=== PATIENT | female | born 1950 | race Caucasian/White ===

== ENCOUNTER → 2016-09-17 | Outpatient (CLI) | payer OTHER ==
--- NOTE | 2016-09-17 18:28 | DX ---
DEXA Bone Mineral Densitometry Clinical Indications: Postmenopausal, dizziness, family history of osteoporosis, apparent with hip f racture, left hip replacement, osteoporosis medication Comparison: September 13, 2014 (low bone density) Technique: Bone Mineral Densitometry (BMD) by Dual Energy X-Ray Absorptiometry (DEXA) was performed utilizing the [employer] scanner. The lumbar spine was evaluated in the AP projection. The right hip and left forearm were evaluated in the AP projection. Vertebral fracture assessment was also per formed. AP Lumbar Spine: The L1 and L2,vertebral bodies were evaluated. L3 and L4 are excluded due to dege nerative sclerosis. BMD: 0.840 gm/cm2 T-score: -2.8 SD Z-score: -1.2 SD L1 and L2 have significantly decreased by 5.5%. AP Right Hip: Neck BMD: 0.705 gm/cm2 T-score: -2.4 SD Z-score: -0.9 SD No significant change in total BMD AP Left Forearm, 08/27: BMD: 0.721 gm/cm2 T-score: -1.8 SD Z-score: 0.2 SD No significant change. There is a downward trend since 2006. Vertebral Fracture Assessment: No significant fracture deformity. Degenerative spurring in the low l umbar spine likely increases L3 and L4 BMD. Conclusion: Considering the lowest measured site, the patient is osteoporotic and at increased risk for fracture. The ten year FRAX risk for any major osteoporotic fracture is 22.9% and for a hip fracture is 4.0%. A ccording to the recommendation of the [employer], this patient is a good candid ate for continuing pharmacologic intervention, as clinically directed. Any bone loss in this patient is probably related to aging or estrogen deficiency. To prevent osteoporosis and to promote the patient's bone density, the following recommendations shou ld be considered: 1. Pursue a regular regimen of weightbearing and muscle strengthening exercises in order to reduce t he risk of falls and fractures (as tolerated by the patient's general medical condition). 2. Ensure that daily dietary calcium uptake is maximized. 3. Consider checking the serum vitamin D level. Ensure that intake of vitamin D is 800 IU per day 4. Consider follow-up DEXA scan in two years to assess the rate of bone loss in this patient.
== END ==
LOC: FIMAGING 08:53
PROVIDERS: ATTEND Family Medicine
DX: M81.0 Age-related osteoporosis without current pathological fracture (principal); R42 Dizziness and giddiness; Z96.642 Presence of left artificial hip joint; Z82.62 Family history of osteoporosis

== ENCOUNTER → 2018-01-01 | Outpatient (CLI) | payer OTHER | LOC: FIMAGING 09:55 | PROVIDERS: ATTEND Family Medicine | DX: M17.12 Unilateral primary osteoarthritis, left knee (principal) ==

== ENCOUNTER → 2018-09-15 | Outpatient (CLI) | payer OTHER | LOC: FIMAGING 09:44 | PROVIDERS: ATTEND Internal Medicine Endocrinology, Diabetes & Metabolism | DX: Z13.820 Encounter for screening for osteoporosis (principal); M85.80 Other specified disorders of bone density and structure, unspecified site; Z78.0 Asymptomatic menopausal state; Z85.3 Personal history of malignant neoplasm of breast; Z96.642 Presence of left artificial hip joint ==

== ENCOUNTER → 2018-09-29 | Outpatient (CLI) | payer OTHER | LOC: FIMAGING 19:17 | PROVIDERS: ATTEND Family Medicine | DX: M23.322 Other meniscus derangements, posterior horn of medial meniscus, left knee (principal); M24.10 Other articular cartilage disorders, unspecified site; M25.462 Effusion, left knee ==

== ENCOUNTER → 2018-12-01 | Outpatient (CLI) | payer OTHER | LOC: FIMAGING 14:22 | PROVIDERS: ATTEND Orthopaedic Surgery | DX: Z01.818 Encounter for other preprocedural examination (principal); M17.12 Unilateral primary osteoarthritis, left knee; M25.862 Other specified joint disorders, left knee; M25.462 Effusion, left knee ==

== ENCOUNTER 2018-12-23 10:02 | Observation (INO) | payer OTHER ==
[~2018-12-23 10:02] MED LIST: ROPIVACAINE 0.2% 80 MG, EPINEPHrine 0.2 MG, KETOROLAC TROMETHAMINE 30 MG in SYRINGE 0 ML IU ONE; TRANEXAMIC ACID 3,000 MG in NS (SYRINGE) 50 ML IRR ONE
[2018-12-23] MEDS ORDERED: TRANEXAMIC ACID 3,000 MG/50 ML BAG IRR ONE (10:07)
[2018-12-23] MEDS ORDERED: FAMOTIDINE 20 MG TAB PO ONE (10:19)
[2018-12-23] MEDS ORDERED: DEXAMETHASONE 4 MG/ML VIAL IVP ONE (10:19)
[2018-12-23] MEDS ORDERED: ACETAMINOPHEN 325 MG TAB PO ONE (10:19)
[2018-12-23] MEDS ORDERED: ceFAZolin 2 GM/DEXTROSE 100 ML IV ONE (10:19)
[2018-12-23] MEDS ORDERED: LR 1,000 ML IV ONE (10:21)
[2018-12-23] MEDS ORDERED: PROPOFOL/EMULSION 500 MG/50 ML BOTTLE IV ONE (10:51)
[2018-12-23] MEDS ORDERED: LIDOCAINE 2% 5 ML SDV ONE (10:53)
[2018-12-23] MEDS ORDERED: MIDAZOLAM 2 MG/2 ML VIAL ONE (12:04)
[2018-12-23] MEDS ORDERED: BUPIVACAINE/DEXTROSE 7.5MG/ML 2 ML SPINAL AMP SP ONE (12:10)
[2018-12-23] MEDS ORDERED: ROPIVACAINE HCL 150 MG/30 ML INJ ONE (12:10)
[2018-12-23] MEDS ORDERED: NALOXONE HCL 0.4 MG/ML INJ IVP PRN (12:32)
[2018-12-23] MEDS ORDERED: HYDROCODONE/APAP 5/325 TAB PO PRN (12:32)
[2018-12-23] MEDS ORDERED: oxyCODONE IR 5 MG TAB PO PRN (12:32)
[2018-12-23] MEDS ORDERED: fentaNYL 100 MCG/2 ML INJ IVP PRN (12:32)
[2018-12-23] MEDS ORDERED: LR 500 ML IV PRN (12:32)
[2018-12-23] MEDS ORDERED: HYDROmorphONE/DILAUDID 1 MG/ML INJ IVP PRN (12:32)
[2018-12-23] MEDS ORDERED: ONDANSETRON 4 MG/2 ML VIAL IVP PRN ×2 (12:32→13:46)
[2018-12-23] MEDS ORDERED: ACETAMINOPHEN 500 MG TAB PO PRN (12:32)
[2018-12-23] MEDS ORDERED: ALBUTEROL 3 ML DEYVIAL IH PRN (12:32)
[2018-12-23] MEDS ORDERED: fentaNYL 100 MCG/2 ML INJ ONE (12:40)
[2018-12-23] MEDS ORDERED: MIDAZOLAM 2 MG/2 ML VIAL IVP ONE (12:46)
[2018-12-23] MEDS ORDERED: PROPOFOL 200 MG/20 ML VIAL ONE (13:06)
[2018-12-23] MEDS ORDERED: MAGNESIUM HYDROXIDE 30 ML UDCUP PO PRN (13:46)
[2018-12-23] MEDS ORDERED: METOCLOPRAMIDE 10 MG/2 ML VIAL IVP PRN (13:46)
[2018-12-23] MEDS ORDERED: ONDANSETRON DISINTEGRATING 4 MG TAB PO PRN (13:46)
[2018-12-23] MEDS ORDERED: LACTULOSE 20 GM/30 ML UDCUP PO PRN (13:46)
[2018-12-23] MEDS ORDERED: PROMETHAZINE HCL 25 MG SUPPR PR PRN (13:46)
[2018-12-23] MEDS ORDERED: TEMAZEPAM 15 MG CAP PO PRN (13:46)
[2018-12-23] MEDS ORDERED: POLYETHYLENE GLYCOL 3350 17 GM PKT PO PRN (13:46)
[2018-12-23] MEDS ORDERED: diphenhydrAMINE 25 MG CAP PO PRN (13:46)
[2018-12-23] MEDS ORDERED: DIPHENOXYLATE/ATROPINE LOMOTIL 1 TAB PO PRN (13:46)
[2018-12-23] MEDS ORDERED: CYCLOBENZAPRINE 10 MG TAB PO PRN (13:46)
[2018-12-23] MEDS ORDERED: PROMETHAZINE HCL 25 MG/ML INJ IVP PRN (13:46)
[2018-12-23] MEDS ORDERED: BISACODYL 10 MG SUPP PR PRN (13:46)
[2018-12-23] MEDS ORDERED: LR 1,000 ML IV SCH (14:00)
[2018-12-23] MEDS: oxyCODONE IR 5 MG TAB PO PRN ×3 (16:20→23:58)
[2018-12-23] MEDS: ACETAMINOPHEN 325 MG TAB PO SCH (19:42)
[2018-12-23] MEDS: ceFAZolin 2 GM/DEXTROSE 100 ML IV SCH (19:43)
[2018-12-23] MEDS ORDERED: PRAMIPEXOLE 0.125 MG TAB PO SCH (21:00)
[2018-12-23] MEDS ORDERED: clonazePAM 0.5 MG TAB PO SCH (21:00)
[2018-12-23] MEDS: SENNOSIDES/DOCUSATE SODIUM TAB PO SCH (21:08)
[2018-12-23] MEDS: ASPIRIN 81 MG CHEWABLE TAB PO SCH (21:08)
[2018-12-23] MEDS: FAMOTIDINE 20 MG TAB PO SCH (21:08)
[2018-12-24] MEDS: ACETAMINOPHEN 325 MG TAB PO SCH ×2 (02:37→08:38)
[2018-12-24] MEDS: ceFAZolin 2 GM/DEXTROSE 100 ML IV SCH (04:05)
[2018-12-24] MEDS: ASPIRIN 81 MG CHEWABLE TAB PO SCH (08:38)
[2018-12-24] MEDS: FAMOTIDINE 20 MG TAB PO SCH (08:38)
[2018-12-24] MEDS: SENNOSIDES/DOCUSATE SODIUM TAB PO SCH (08:38)
[2018-12-24] MEDS: oxyCODONE IR 5 MG TAB PO PRN (08:39)
== END 2018-12-24 11:57 | disposition home or self-care (01) ==
DX: M17.12 Unilateral primary osteoarthritis, left knee (principal); Z85.3 Personal history of malignant neoplasm of breast; Z96.642 Presence of left artificial hip joint
CPT/HCPCS: 27447; 73560; 88311; 97116; 97161; C1776; G0378; J0171; J0690; J1100; J1885; J2250; J2704; J2795; J3010